=== PATIENT | male | born 1965 | race African-American/Black ===

== ENCOUNTER 2018-12-09 11:39 | Emergency (ER) | payer SELFPAY ==
[~2018-12-09] VITALS: Ht 190.5 cm; Wt 104.3 kg
[2018-12-09 12:03] VITALS: BP 123/80
--- NOTE | 2018-12-09 12:08 | NUR ---
ED Nurse Note: Patient walked in to ER c/o chest pain 8/10 more to the Right side which radiates to Rt shoulder and Rt arm. pt aao x4 and ambulatory with steady gait. pt calm and cooperative. skin clean and intact.
--- NOTE | 2018-12-09 12:48 | Emergency Room Report ---
History of Present Illness General Chief Complaint: General Complaint Source: Patient Present Illness HPI 53-year-old male presents to the emergency department complaining of elevated blood pressure reading 2 days. Patient is also reporting intermittent bilateral paresthesias in the hands and tightness going across the upper back. Patient does report that he did have a 4/10 in severity dull progressive headache this morning. Patient states that upon arrival to the ED his blood pressure has normalized. Patient is concerned because he is taking 2 blood pressure medications and his high blood pressures been poorly managed in his opinion. He denies facial facial droop, unilateral weakness, difficulty swallowing, confusion or syncope. His currently prescribed amlodipine and clonidine he states that he has not been taking the clonidine. Denies chest pain shortness of breath or sudden onset of a headache. Allergies: Coded Allergies: No Known Allergies (Unverified , 12/09/18) Patient History Past Medical History: see triage record Past Surgical History: none Pertinent Family History: none Reviewed Nursing Documentation: PMH: Agreed; PSxH: Agreed Nursing Documentation-PM Past Medical History: No History, Except For Hx Hypertension: Yes Review of Systems All Other Systems: negative except mentioned in HPI Physical Exam Vital Signs Date Time Temp Pulse Resp B/P (MAP) Pulse Ox O2 Delivery O2 Flow Rate FiO2 12/09/18 11:52 98.2 113 21 98 Room Air 12/09/18 12:03 123/80 Sp02 EP Interpretation: reviewed, normal General Appearance: no apparent distress, alert, GCS 15, non-toxic Head: normocephalic, atraumatic Eyes: bilateral eye normal inspection, bilateral eye PERRL ENT: hearing grossly normal, normal voice Neck: full range of motion Respiratory: chest non-tender, lungs clear, normal breath sounds, speaking full sentences Cardiovascular #1: regular rate, rhythm, no edema Musculoskeletal: back normal, gait/station normal, normal range of motion, non- tender Neurologic: alert, oriented x3, responsive, motor strength/tone normal, sensory intact, normal gait, speech normal, no pronator, other - no facial droop , strength is grossly normal., grossly normal Psychiatric: judgement/insight normal Skin: normal color, no rash, warm/dry, well hydrated Medical Decision Making PA Attestation Dr. Wayne is my supervising Physician whom patient management has been discussed with. Diagnostic Impression: Primary Impression: Elevated blood pressure reading with diagnosis of hypertension ER Course 53-year-old male presents to the emergency department complaining of elevated blood pressure reading 2 days. Patient is also reporting intermittent bilateral paresthesias in the hands and tightness going across the upper back. Patient does report that he did have a 4/10 in severity dull progressive headache this morning. Patient states that upon arrival to the ED his blood pressure has normalized. Patient is concerned because he is taking 2 blood pressure medications and his high blood pressures been poorly managed in his opinion. He denies facial facial droop, unilateral weakness, difficulty swallowing, confusion or syncope. His currently prescribed amlodipine and clonidine he states that he has not been taking the clonidine. Denies chest pain shortness of breath or sudden onset of a headache. Vital signs: are WNL, pt. is afebrile H&PE are most consistent with benign elevated BP reading without evidence of endstage organ symptoms/ acute damage. No focal neurological deficits.Pt. is NAD , non-Toxic in appearance. ORDERS: none required at this time, the diagnosis is clinical ED INTERVENTIONS: None required at this time. D/w pt. calming techniques for at home, proper use of his clonidine, avoidance of salt, and concerning symptoms which would indicate prompt return to the ED. DISCHARGE: At this time pt. is stable for d/c to home. Will provide printed patient care instructions, and any necessary prescriptions. Care plan and follow up instructions have been discussed with the patient prior to discharge. EKG Diagnostic Results EP Interpretation: Dr. wayne Rate: normal - 95 bpm Rhythm: NSR ST Segments: no acute changes ASA given to the pt in ED: No PA Scribe Text This Interpretation was scribed by CHUYITA Jaramillo. Last Vital Signs Date Time Temp Pulse Resp B/P (MAP) Pulse Ox O2 Delivery O2 Flow Rate FiO2 12/09/18 12:03 102 21 Room Air 12/09/18 12:03 98.2 123/80 98 Disposition: HOME, SELF-CARE Condition: Stable Patient Instructions: Form - Blood Pressure Record Sheet, How to Take Your Blood Pressure, [id number], Managing Your High Blood Pressure Additional Instructions: Take previously prescribed medications as directed. Follow up with a Primary Care Provider in 3-5 days, even if your symptoms have resolved. --Please review list of primary care clinics, if you do not already have a primary care provider Return sooner to ED if new symptoms occur, or current symptoms become worse. - Please note that this Emergency Department Report was dictated using [employer] cutter operator technology software, occasionally this can lead to erroneous entry secondary to interpretation by the dictation equipment. Layla Jaramillo December 09, 2018 12:48
[2018-12-09 12:55] VITALS: BP 121/79
--- NOTE | 2018-12-09 13:00 | NUR ---
ER DISCHARGE NOTE: Patient is cleared to be discharged per ERMD, pt is aox4, on room air, with stable vital signs. pt was given dc and prescription instructions, pt was able to verbalize understanding, pt id band removed. pt is able to ambulate with steady gait. pt took all belongings.
--- NOTE | 2018-12-10 14:42 | Cardiology Report ---
APPROVED REPORT EKG Measurement Heart [id number] Normal sinus rhythm Nonspecific ST abnormality Abnormal ECG
== END 2018-12-09 13:00 | disposition home or self-care (01) ==
LOC: EMR 12:20
DX: R03.0 Elevated blood-pressure reading, without diagnosis of hypertension (principal); R20.2 Paresthesia of skin; R51 Headache; I10 Essential (primary) hypertension
CPT/HCPCS: 93005; 99283